=== PATIENT | female | born 1965 | race Caucasian/White ===

== ENCOUNTER 2020-02-17 17:15 | Outpatient (CLI) | payer BC, SELFPAY ==
--- NOTE | ~2020-02-17 | MM_ITS ---
EXAMINATION: MM screening [facility] BI w gerber HISTORY: Screening TECHNIQUE: Craniocaudal and mediolateral oblique 3-D tomosynthesis images were obtained and synthetic 2-D images were generated. CAD analysis was submitted and interpreted. COMPARISON: Comparison to multiple prior studies sequentially, with oldest reviewed study dated 03/17. BREAST PARENCHYMAL COMPOSITION: There are scattered areas of fibroglandular density. FINDINGS: There is no evidence of suspicious mass, calcification, or architectural distortion to sugg est malignancy in either breast. There has been no suspicious interval change. IMPRESSION: 1. No mammographic evidence of malignancy. 2. Recommend routine screening mammography in one year. BI-RADS Category 1: Negative Reviewed, dictated and finalized at location A.
== END 2020-02-17 17:16 | disposition home or self-care (01) ==
LOC: ANHIMG 17:16
PROVIDERS: Visit Provider Obstetrics & Gynecology
DX: Z12.31 Encounter for screening mammogram for malignant neoplasm of breast (principal)
CPT/HCPCS: 77063; 77067

== ENCOUNTER 2020-03-03 00:47 | Outpatient (CLI) | payer BC, SELFPAY ==
[2020-03-03 17:08] LABS: SARS-CoV-2 RNA PCR Negative
== END 2020-03-03 00:48 | disposition home or self-care (01) ==
LOC: ANHCOVIDDT 00:47
PROVIDERS: Visit Provider Obstetrics & Gynecology
DX: Z01.812 Encounter for preprocedural laboratory examination (principal); Z20.828 Contact with and (suspected) exposure to other viral communicable diseases
CPT/HCPCS: 87635; C9803; U0003

== ENCOUNTER 2020-03-06 00:52 | Day surgery (SDC) | payer BC, SELFPAY ==
[2020-02-29 16:52] VITALS: BMI 33.6
--- NOTE | 2020-03-03 16:40 | PM.IMHP ---
H&P: HPI History of Present Illness Date/Time: 03/03/20 16:40 Chief complaint: Postmenopausal Bleeding Narrative: Elena Linares is a 54 year old female with irregular bleeding off and on on at least 3 doses HRT over past 9 months. Review of Systems Review of Systems: All systems reviewed & are unremarkable except as noted in HPI and below PMFSH Past Medical History Medical History Depression Fractures Right tibia, left wrist Graves' disease Hypothyroidism Irritable bowel syndrome IUD (intrauterine device) in place Kidney stones Mitral valve prolapse Stress incontinence Vitiligo Surgical History Surgical History History of cholecystectomy Hx of tonsillectomy Social History Social History Years smoked: 10 Smoking status: Former smoker Tobacco type: cigarettes Second hand tobacco smoke exposure: No Alcohol intake: never Substance use: never Last use: May 1995 Gender identity (if verbalized by the patient): Female Spiritual care concerns: No Meds Home Medications and Allergies Home Medications Medication Instructions Recorded Confirmed Type levothyroxine 100 mcg PO DAILY 06/01/19 02/29/20 History paroxetine HCl 10 mg PO DAILY 06/01/19 02/29/20 History estradiol-norethindrone acet 1 1 tablet PO DAILY #84 tablet 02/03/20 02/29/20 Rx mg-0.5 mg tablet magnesium 30 mg PO DAILY 02/29/20 02/29/20 History omega 2-zzc-gkh-fish oil [Fish Oil] 1 cap PO DAILY 02/29/20 02/29/20 History vitamin B complex [B 1 tablet PO DAILY 02/29/20 02/29/20 History Complex-Vitamin B12] Allergies Allergy/AdvReac Type Severity Reaction Status Date / Time No Known Allergies Allergy Verified 02/29/20 16:49 Exam Const: General: no acute distress Resp: Auscultation: clear to auscultation bilaterally Cardio: Rate: regular rate Rhythm: regular rhythm GI: Inspection: non-distended GI Palp: Yes Soft to palpation and No Tenderness to palpation present (GI) : Other: Uterus normal size, nontender, mobile, smooth. Adnexa nontender with no palpable mass Psych: Mental Status: mental status grossly normal Assessment and Plan Assessment and plan (1) Postmenopausal bleeding: Code(s): N95.0 - Postmenopausal bleeding Status: Acute Assessment and Plan: She signed consent after R/B/C/A discussed for D&C/hysteroscopy. She expressed understanding and wishes to proceed.
[2020-03-06] MEDS: LACTATED RINGERS 1,000 ML 30 ML IV CONT (13:25)
[2020-03-06 13:30] VITALS: BP 137/83; PULSE 60; RESP 16; TEMP 36.6; O2SAT 98
--- NOTE | 2020-03-06 13:48 | WPDANESEPPF ---
Anes - Initial Pre Proc Eval Procedure: Operation Date: 03/06/20 14:30 Proposed Procedures p Hysteroscopy, Dilation and Curettage - Monica Rock MD Date/Time: 03/06/20 13:48 Surgeon: Monica Rock MD Pre Op Diagnosis: Postmenopausal Bleeding Patient Data Age: 54 Gender: F Height: 5 ft 7 in Weight: 99 kg Last Vital Signs Temp 98 F 03/06/20 13:30 Pulse 60 03/06/20 13:30 Resp 16 03/06/20 13:30 BP 137/83 03/06/20 13:30 Pulse Ox 98 03/06/20 13:30 Allergies Allergy/AdvReac Type Severity Reaction Status Date / Time No Known Allergies Allergy Verified 03/06/20 12:40 Home Medications Medication Instructions Recorded Confirmed Type levothyroxine 100 mcg PO DAILY 06/01/19 03/06/20 History paroxetine HCl 10 mg PO DAILY 06/01/19 03/06/20 History estradiol-norethindrone acet 1 1 tablet PO DAILY #84 tablet 02/03/20 03/06/20 Rx mg-0.5 mg tablet magnesium 30 mg PO DAILY 02/29/20 03/06/20 History omega 5-xll-veo-fish oil [Fish Oil] 1 cap PO DAILY 02/29/20 03/06/20 History vitamin B complex [B 1 tablet PO DAILY 02/29/20 03/06/20 History Complex-Vitamin B12] Patient hx anesthesia problems: none Family hx anesthesia problems: none PMFSH Past Medical History Medical History Depression Fractures Right tibia, left wrist Graves' disease Hypothyroidism Irritable bowel syndrome IUD (intrauterine device) in place Kidney stones Mitral valve prolapse Stress incontinence Vitiligo Surgical History Surgical History History of cholecystectomy Hx of tonsillectomy Social History Social History Years smoked: 10 Smoking status: Former smoker Tobacco type: cigarettes Second hand tobacco smoke exposure: No Alcohol intake: never Substance use: never Last use: May 1995 Living arrangements: with family Gender identity (if verbalized by the patient): Female Spiritual care concerns: No Anes - Eval Final PreProcedure Day of Procedure 03/06/20 13:48 Patient weight: overweight Heart: regular rate and rhythm Lungs: clear to auscultation Airway: Mallampati scale class II Neurological: alert and oriented Last oral intake: >/= 8 hours ASA classification: II Emergent: no Anesthetic plan: proceed Anesthesia type and monitoring: general GIVS and standard monitoring Informed Consent: The patient's anesthetic plan and its attendant risks and benefits were discussed with the patient/family/POA. Questions were solicited and answers provided to the satisfaction of the patient/family/POA.
--- NOTE | 2020-03-06 14:31 | WPDHPUPDATE1 ---
History and Physical Update Update Date/Time: 03/06/20 14:31 History and Physical has been reviewed, including an updated exam of the patient. There are NO changes in the patient's condition. Risks, benefits, and alternatives have been discussed and questions answered. Patient agrees to proceed with procedure.
--- NOTE | 2020-03-06 14:42 | PM.PROC ---
Procedure Note - Detailed Date of procedure: 03/06/20 Pre-op diagnosis: Postmenopausal Bleeding Post-op diagnosis: same Procedure performed: D&C, hysteroscopy Description of procedure: She was taken to the operating room where she was prepared and draped in the normal sterile fashion in the dorsal lithotomy position. She had already been sedated. A speculum was placed in the vagina and the anterior lip of the cervix was grasped with a single-tooth tenaculum. The cervix was dilated to allow passage of the hysteroscope revealed normal endometrial cavity with both tubal ostia identified. A sharp curettage was then performed and the curettings sent for pathologic evaluation. The tenaculum was removed. Both tenaculum sites were bleeding slightly. Pressure was held with ring forceps and Allis clamp until excellent hemostasis was assured. All instruments were then removed from the vagina. She tolerated the procedure well. Sponge, lap, and instrument counts were correct x2. She was taken to the recovery room in stable condition. Anesthesia: MAC Surgeon: Monica Rock MD Estimated blood loss (mL): 5 Drains: No Packing: No Pathology: yes Complications: No immediate complications Condition: stable Disposition: PACU Findings: Normal endometrial cavity
[2020-03-06 15:35] VITALS: BP 122/66; PULSE 64; RESP 12; O2SAT 97
[2020-03-06 16:04] VITALS: BP 125/70; PULSE 54; RESP 14
[2020-03-06 16:34] VITALS: BP 145/70; PULSE 62; RESP 15
== END 2020-03-06 16:45 | disposition home or self-care (01) ==
PROVIDERS: PCP Internal Medicine; Visit Provider Obstetrics & Gynecology
PROC: 0U5B8ZZ Destruction of Endometrium, Via Natural or Artificial Opening Endoscopic (ICD-10-PCS; CPT 58563; principal; 2020-03-06 14:30)
DX: N95.0 Postmenopausal bleeding (principal); E05.00 Thyrotoxicosis with diffuse goiter without thyrotoxic crisis or storm; I34.1 Nonrheumatic mitral (valve) prolapse; K58.9 Irritable bowel syndrome, unspecified; F32.9 Major depressive disorder, single episode, unspecified; Z87.891 Personal history of nicotine dependence
CPT/HCPCS: 58558; 88305; A9270; J2250; J2704; J3010; J7030; J7120

== ENCOUNTER 2022-05-15 10:23 | Outpatient (CLI) | payer BC, SELFPAY ==
--- NOTE | ~2022-05-15 | MM_ITS ---
EXAMINATION: MM screening [facility] BI w gerber HISTORY: Screening mammogram TECHNIQUE: Craniocaudal and mediolateral oblique 3-D tomosynthesis images were obtained and synthetic 2-D images were generated. CAD analysis was submitted and interpreted. COMPARISON: 02/17/2020, 07/10/2018, 01/05/2018, 12/30/2017 BREAST PARENCHYMAL COMPOSITION: There are scattered areas of fibroglandular density. FINDINGS: No suspicious mass, calcification, or architectural distortion are identified in either loni ast to suggest malignancy. There has been no suspicious interval change. IMPRESSION: 1. No mammographic evidence of malignancy. 2. Recommend routine screening mammography in one year. BI-RADS Category 1: Negative Reviewed, dictated and finalized at location A. ORM FORCE CAPTAIN
== END 2022-05-15 10:24 | disposition home or self-care (01) ==
PROVIDERS: PCP Internal Medicine; Visit Provider Student in an Organized Health Care Education/Training Program
DX: Z12.31 Encounter for screening mammogram for malignant neoplasm of breast (principal)
CPT/HCPCS: 77063; 77067

== ENCOUNTER 2022-06-19 14:17 | Outpatient (CLI) | payer BC, SELFPAY ==
--- NOTE | ~2022-06-19 | CT_ITS ---
EXAMINATION: CT soft tissue neck w con DATE: 06/19/2022 14:49 INDICATION: Nontoxic single thyroid nodule. TECHNIQUE: Computed tomography (CT) of the neck was performed with 75 mL Omnipaque-350 intravenous co ntrast. Automated exposure control and iterative reconstruction technique were employed. The dose-keyla gth product was 394.65 mGy-cm. COMPARISON: None FINDINGS: There are no pathologically enlarged lymph nodes. The thyroid is small. There is 0% stenosi s of the proximal internal carotid arteries relative to normal distal artery lumen diameters. There i s mild mucosal thickening in the paranasal sinuses. The mastoid air cells are normal. There is modera te cervical spondylosis. IMPRESSION: 1. Small thyroid. No nodule identified. Reviewed, dictated and finalized at location A. N RESOURCE ADVISOR
== END 2022-06-19 14:18 ==
PROVIDERS: PCP Internal Medicine
DX: E04.1 Nontoxic single thyroid nodule (principal)
CPT/HCPCS: 70491; Q9967

== ENCOUNTER 2024-03-17 16:17 | Outpatient (CLI) | payer OTHER, SELFPAY ==
--- NOTE | ~2024-03-17 | MM_ITS ---
EXAMINATION: MM screening mine BI w gerber HISTORY: Screening TECHNIQUE: Craniocaudal and mediolateral oblique 3-D tomosynthesis images were obtained and synthetic 2-D images were generated. CAD analysis was submitted and interpreted. COMPARISON: Comparison to multiple prior studies sequentially, with oldest reviewed study dated 03/17. BREAST PARENCHYMAL COMPOSITION: Not dense: There are scattered areas of fibroglandular density. FINDINGS: There is no evidence of suspicious mass, calcification, or architectural distortion to sugg est malignancy in either breast. There has been no suspicious interval change. IMPRESSION: 1. No mammographic evidence of malignancy. 2. Recommend routine screening mammography in one year. BI-RADS Category 1: Negative Reviewed, dictated and finalized at location B.
== END 2024-03-17 16:18 | disposition home or self-care (01) ==
LOC: ANHIMG 16:19
PROVIDERS: PCP Internal Medicine; Visit Provider Obstetrics & Gynecology
DX: Z12.31 Encounter for screening mammogram for malignant neoplasm of breast (principal)
CPT/HCPCS: 77063; 77067